=== PATIENT | male | born 2000 | race Caucasian/White ===

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

== ENCOUNTER 2020-01-28 20:23 | Emergency (ER) | payer BC, OTHER ==
[2020-01-28 20:46] VITALS: BP 123/74; RESP 18; TEMP 99.5
[2020-01-28 20:52] VITALS: PULSE 84
--- NOTE | 2020-01-28 21:46 | ED ---
General Adult HPI - General Source: patient, RN notes reviewed, old records reviewed Mode of arrival: ambulatory Limitations: no limitations <Piero Chaudhary - Last Filed: 01/28/20 21:41> <Kendra Nelson - Last Filed: 02/02/20 23:29> - General Chief complaint: Skin/Abscess/Foreign Body Stated complaint: Facial Injury Time Seen by Provider: 01/28/20 21:05 - History of Present Illness Initial comments: 19-year-old male patient was ED for chief complaint of requesting his nose ring to be removed patient reports that he is unable to remove that this that he closed it off and now he is unable to slide off his nose. It's a hoop like ring. Denies any other complaints. Systemic: Pt denies fatigue, fever/chills, rash. Pt denies weakness, night sweats, weight loss. Neuro: Pt denies headache, visual disturbances, syncope or pre-syncope. HEENT: Pt denies ocular discharge or irritation, otalgia, rhinorrhea, pharyngitis or notable lymphadenopathy. Cardiopulmonary: Pt denies chest pain, SOB, heart palpitations, dyspnea on exertion. Abdominal/GI: Pt denies abdominal pain, n/v/d. : Pt denies dysuria, burning w/ urination, frequency/urgency. Denies new onset urinary or bowel incontinence. MSK: Pt denies myalgia, loss of strength or function in extremities. Neuro: Pt denies new onset weakness, paresthesias. (Piero Chaudhary) - Related Data Home Medications Medication Instructions Recorded Confirmed No Known Home Medications 09/02/16 03/17/18 Allergies Allergy/AdvReac Type Severity Reaction Status Date / Time No Known Allergies Allergy Verified 01/28/20 20:46 Review of Systems ROS Other: All systems not noted in ROS Statement are negative. <Piero Chaudhary - Last Filed: 01/28/20 21:41> ROS Other: All systems not noted in ROS Statement are negative. <Kendra Nelson - Last Filed: 02/02/20 23:29> ROS Statement: Those systems with pertinent positive or pertinent negative responses have been documented in the HPI. Past Medical History Past Medical History: No Reported History History of Any Multi-Drug Resistant Organisms: None Reported Past Surgical History: No Surgical Hx Reported Past Psychological History: Depression Smoking Status: Never smoker Past Alcohol Use History: Occasional Past Drug Use History: Marijuana <Piero Chaudhary - Last Filed: 01/28/20 21:41> General Exam Limitations: no limitations <Piero Chaudhary - Last Filed: 01/28/20 21:41> - General Exam Comments Initial Comments: Constitutional: NAD, AOX3, Pt has pleasant affect. HEENT: NC/AT, trachea midline, neck supple, no lymphadenopathy. External ears appear normal, without discharge. Mucous membranes moist.EOM intact. There is no scleral icterus. No pallor noted. Cardiopulmonary: RRR, no murmurs, rubs or gallops, no JVD noted. Lungs CTAB in anterior and posterior choi. No peripheral edema. Neuro: CN II-XII grossly intact. No nuchal rigidity. MSK: Full active ROM in upper and lower extremities. (Piero Chaudhary) Course Vital Signs 01/28/20 20:44 Temperature 99.5 F Pulse Rate 84 Respiratory 18 Rate Blood Pressure 123/74 O2 Sat by Pulse 100 Oximetry Procedures - Foreign Body Removal Nose Location: nostril (R) Foreign Body Removal Technique: other (cut off nose ring) Patient Tolerated Procedure: well Complications: none <Piero Chaudhary - Last Filed: 01/28/20 21:41> Medical Decision Making <Piero Chaudhary - Last Filed: 01/28/20 21:41> <Kendra Nelson - Last Filed: 02/02/20 23:29> - Medical Decision Making 19-year-old male patient presents to ED for evaluation of nose during she Removed from his right nostril. At patient request Ring was cut off without any difficulty. No erythema signs of infection. Patient was discharged will follow-up with primary care provider and return precautions. Case discussed with Dr. Nelson. (Piero Chaudhary) I was available for consultation in the emergency department. The history and physical exam were done by the midlevel provider. I was consulted for this patients care. I reviewed the case with the midlevel provider and based on their presentation of the patient, I agree with the assessment, medical decision making and plan of care as documented. Chart was dictated using [employer] dictation software. Attempts were made to correct any dictation errors however some typographical errors may persist. (Kendra Nelson) Disposition Is patient prescribed a controlled substance at d/c from ED?: No <Piero Chaudhary - Last Filed: 01/28/20 21:41> <Kendra Nelson - Last Filed: 02/02/20 23:29> Clinical Impression: Foreign body Narrative: nose ring removal (Piero Chaudhary) Disposition: HOME SELF-CARE Condition: Stable Instructions (If sedation given, give patient instructions): Soft Tissue Foreign Body (ED) Additional Instructions: follow up with primary care provider tomorrow. Return to ER if any worsening symptoms. Referrals: Tayla Vargas MD [Primary Care Provider] - 1-2 days
== END 2020-01-28 21:49 | disposition home or self-care (01) ==
LOC: EC 20:23
DX: T17.1XXA Foreign body in nostril, initial encounter (principal); W49.04XA Ring or other jewelry causing external constriction, initial encounter
CPT/HCPCS: 99283